=== PATIENT | female | born 1970 | race Caucasian/White ===

== ENCOUNTER 2023-04-21 09:35 | Outpatient (RCR) | payer OTHER, SELFPAY | END 2023-04-21 23:59 | disposition home or self-care (01) | LOC: CRHB 09:35 | PROVIDERS: ATTENDING PHYSICIAN Internal Medicine Cardiovascular Disease; FAMILY PHYSICIAN Physician Assistant | DX: I25.10 Atherosclerotic heart disease of native coronary artery without angina pectoris (principal); Z95.5 Presence of coronary angioplasty implant and graft; I25.2 Old myocardial infarction | CPT/HCPCS: 93797; 93798 ==

== ENCOUNTER 2023-05-07 08:45 | Outpatient (RCR) | payer OTHER, SELFPAY | END 2023-05-07 23:59 | disposition home or self-care (01) | LOC: CRHB 08:45 | PROVIDERS: ATTENDING PHYSICIAN Internal Medicine Cardiovascular Disease; FAMILY PHYSICIAN Physician Assistant | DX: I25.10 Atherosclerotic heart disease of native coronary artery without angina pectoris (principal); Z95.5 Presence of coronary angioplasty implant and graft; I25.2 Old myocardial infarction | CPT/HCPCS: 93797; 93798 ==

== ENCOUNTER 2023-09-08 08:47 | Emergency (ER) | payer OTHER, SELFPAY ==
[2023-09-08 08:48] VITALS: BP 121/82
--- NOTE | 2023-09-08 09:34 | ED.GENMED ---
History of Present Illness
General
Chief Complaint: Extremity Pain (non-traumatic)
Source: patient
Exam Limitations: none
Time Seen by Provider: 09/08/23 09:05
Nursing documentation reviewed up to this point in time: agreed with
Travel History
Have you had any contact with someone who has COVID-19?: No
Do you have any symptoms of coronavirus? Fever > 100 degrees, chills, cough, shortness of breath, sore throat, loss of taste or smell, muscle aches, or headache?: No
History of Present Illness
History of Present Illness:
53-year-old female with past medical history of hypertension previous heart attack currently on Brilinta presenting to the emergency department today with concerns of left dave pain over the past few days. There is some small mount of bruising to
the area as well. Has a chronic foot pain over the past year as well. Denies any chest pain shortness of breath nausea vomiting or blood clots.
Past History
Past History
ED Past Medical History: GERD, HTN, Hypercholesterolemia, [place], Other (Neck pain, HELP syndrome, Anemoa, ) and Other (Help syndrome)
ED Past Surgical History: Cardiac (Stents S 3), Cholecystectomy, ( X 2) and Orthopedic (Left hand surgery, Right Meniscus, Right foot surgery, )
Social History
Tobacco: Non-smoker
Alcohol: Occasional
Drug: None
Personal:
Living: with family
Employment: Employed
Family History
Family History: CAD
Review of Systems
Review of Systems
Allergies reviewed?: Yes
All Other Systems: ROS reviewed and negative except as documented in HPI and ROS
Phy Exam
Physical Exam
Physical Exam:
GENERAL: Alert , in no apparent distress
EYE: pupils equal and reactive
NECK: Supple, no significant adenopathy.
ENT: o/p clr, mmm.
CARDIAC: Regular rate and rhythm .
LUNGS: Clear breath sounds bilaterally, no acute respiratory distress, no wheezes/rales/rhonchi
ABDOMEN: Soft, without focal tenderness, no r/g, no cvat
NEUROLOGICAL: Alert and oriented, no focal neuro deficits
SKIN: Warm and dry, skin intact.
MUSCULOSKELETAL: Very mild swelling to the left dave compared to the right small on bruising to the dave mild tenderness good distal pulses and cap refill normal range of motion and strength of the knee ankle and toes, well perfused.
PSYCH: Normal and appropriate interaction.
Course
Orders/Labs/Results
Orders:
Orders
09/08/23 09:19
Venous Doppler Lwr Ext Left [US Periph Venous LOWER Ext LT] Urgent
Comment:
Reason For Exam: leg pain
Vital Signs
Initial and Last Documented VS:
Initial Vital Signs
Temp Pulse Resp BP Pulse Ox
98.1 F 74 20 121/82 98
09/08/23 08:48 09/08/23 08:48 09/08/23 08:48 09/08/23 08:48 09/08/23 08:48
Last Documented Vital Signs
Temp Pulse Resp BP Pulse Ox
98.1 F 74 20 121/82 98
09/08/23 08:48 09/08/23 08:48 09/08/23 08:48 09/08/23 08:48 09/08/23 08:48
MDM/Problems Addressed
MDM/Problems Addressed:
53-year-old female presenting to the emergency department today with concerns of left-sided dave discomfort. This worsening over the past few days. On arrival here distal neurovascular examination. Small amount of bruising to the dave mild
tenderness very subtle swelling. Considering patient's swelling is atraumatic ultrasound was performed that did not show signs of DVT. No apparent life threats no redness warmth no signs of infection advised for elevation and compression stocking
as well as close outpatient follow-up. Return precautions given.
*Critical Care Note
Total Time (30-74mins, 75-104mins- exclusive of procedures): Not Applicable
ED Attending Note
-
Portions of this chart may have been created with voice recognition software.� Occasional wrong word or��sound alike� substitutions may have occurred due to the inherent limitations of voice recognition software.
Discharge Plan
Departure
Patient Disposition: Home (Routine Discharge)
Date of Disposition: 09/08/23
Time of Disposition: 11:04
Patient with high blood pressure during this ER visit?: No
Condition: Good
Covid-19: Not Applicable
Discharge Problem:
Left leg pain
Instructions: Muscle and Bone Pain (DC)
Prescriptions:
No Action
escitalopram oxalate 10 mg Tablet
10 mg PO DAILY
poaeiczl-ufikwedbbm-nh glycn-C 500-400 mg Capsule
3 cap PO DAILY
glucosamine-chondroitin [Osteo Bi-Flex] 250-200 mg Tablet
2 tab PO DAILY
multivitamin Tablet,Chewable
2 tab DAILY
Hair,Skin and Nails Tablet
2 tab PO DAILY
Brilinta 90 mg Tablet
90 mg PO BID Qty: 60 11RF
aspirin [Children's Aspirin] 81 mg Tablet,Chewable
81 mg PO DAILY Qty: 1 0RF
Rx Instructions:
DO NOT STOP ASPIRIN
lisinopril 5 mg Tablet
5 mg PO DAILY Qty: 90 3RF
atorvastatin 80 mg tablet
80 mg PO QPM Qty: 90 3RF
nitroglycerin [nitroglycerin] 0.4 mg tablet, sublingual
0.4 mg sublingual [id number] PRN (Reason: chest pain) Qty: 25 2RF
Referrals:
Marcy Amor PA-C [Family Provider] -
Activity Restrictions/Additional Instructions:
You came to the emergency department today with concerns of leg pain. Here you had a reassuring ultrasound. Please feel close with the primary care doctor for reassessment. Return to the emergency department for any worsening, new or concerning
symptoms.
Interventions
Interventions:
*Risk Screen - Suicide Last Done: 09/08/23 08:48
*General Assessment Last Done: 09/08/23 08:48
*Neglect/Abuse Screening Last Done: 09/08/23 08:48
ED- Fall Risk Assessment Last Done: 09/08/23 09:06
*ED COVID-19 Vaccine History Last Done: 09/08/23 09:05
ED-Skin Assessment Last Done: 09/08/23 10:38
ED-Peripheral Vascular Assessment Last Done: 09/08/23 10:38
ED-Musculoskeletal Assessment Last Done: 09/08/23 10:38
Discharge Date and Time
Print Language: WELSH
== END 2023-09-08 11:26 | disposition home or self-care (01) ==
LOC: EMR 08:47
PROVIDERS: EMERGENCY PHYSICIAN Emergency Medicine; FAMILY PHYSICIAN Physician Assistant
DX: M79.662 Pain in left lower leg (principal); R22.42 Localized swelling, mass and lump, left lower limb; I10 Essential (primary) hypertension; K21.9 Gastro-esophageal reflux disease without esophagitis; E78.00 Pure hypercholesterolemia, unspecified; I25.2 Old myocardial infarction; G89.29 Other chronic pain; M79.605 Pain in left leg; Z79.02 Long term (current) use of antithrombotics/antiplatelets; Z82.49 Family history of ischemic heart disease and other diseases of the circulatory system; Z90.49 Acquired absence of other specified parts of digestive tract; Z95.5 Presence of coronary angioplasty implant and graft
CPT/HCPCS: 99284; 93971

== ENCOUNTER → 2023-12-23 14:50 | Outpatient (REF) | payer OTHER, SELFPAY | LOC: RCS 14:50 | PROVIDERS: ATTENDING PHYSICIAN Internal Medicine Cardiovascular Disease; FAMILY PHYSICIAN Physician Assistant | DX: R07.89 Other chest pain (principal); I21.09 ST elevation (STEMI) myocardial infarction involving other coronary artery of anterior wall; I25.10 Atherosclerotic heart disease of native coronary artery without angina pectoris; E78.5 Hyperlipidemia, unspecified; I10 Essential (primary) hypertension; Z95.5 Presence of coronary angioplasty implant and graft | CPT/HCPCS: 93306 ==

== ENCOUNTER → 2023-12-25 07:19 | Outpatient (REF) | payer OTHER, SELFPAY | LOC: DHCBC/DCA 07:19 | PROVIDERS: ATTENDING PHYSICIAN Internal Medicine Cardiovascular Disease; FAMILY PHYSICIAN Physician Assistant | DX: R07.89 Other chest pain (principal) | CPT/HCPCS: 78452; 93017; A9500; J2785 ==

== ENCOUNTER 2023-12-30 10:01 | Day surgery (SDC) | payer OTHER, SELFPAY ==
[2023-12-30] VITALS (7 sets, daily range): BP systolic 111–125; BP diastolic 67–90; BMI 31.8
[2023-12-30] MEDS: NSS 229 ML IV (11:32)
[2023-12-30] MEDS: NSS 1000 IV (14:35)
--- NOTE | 2023-12-30 18:27 | ITS.CL.CATH ---
[employer] - Catheterization
Cardiac Catheterization
Procedure Report:
CARDIAC CATHETERIZATION REPORT
Date of Procedure: 12/30/2023
Referring: Jovanni Sarkar D.O.
INDICATION: Known coronary artery disease, chest pressure, abnormal stress test.
PROCEDURE:
1. Left heart catheterization.
2. Coronary angiography.
ACCESS:
6 [place] right femoral artery using a modified Seldinger technique with a micropuncture kit under ultrasound guidance.
CATHETERS:
1. 5 [place] JR4.
2. 5 [place] JL 3.5.
HEMODYNAMIC DATA
Weight (kg): 76.2
AO (s/d/x, mmHg): 120/67/92
LV (s/x mmHg): 125/14
LEFT VENTRICULOGRAPHY: Not performed.
CORONARY ANGIOGRAPHY
Dominance: Right.
Left Main: Normal size, trifurcating vessel. There is no coronary artery disease.
LAD: Normal size vessel giving rise to 1 large diagonal. There is significant overlap of the proximal LAD and proximal diagonal. A patent stent is present in the proximal diagonal with no evidence of in-stent restenosis.
Ramus: Medium size vessel supplying the majority of the lateral wall. There is moderate to severe tortuosity in the proximal third of the vessel. There is no coronary artery disease.
Circumflex: Small size, nondominant vessel giving rise to a single obtuse marginal. There is no coronary artery disease.
RCA: Normal size, dominant vessel. Patent stents are present in the proximal and mid vessel. There is a 20% in-stent restenosis lesion in the distal aspect of the mid RCA stent.
INTERVENTION(S)
None.
Closure Device: 6 [place] Angio-Seal.
Radiation (mGy): 362.25
DAP (cm2.Gy): 25.0502
Fluoroscopy time (minutes): 1.7
Sedation time (minutes): 27
CONCLUSIONS
1. Right dominant circulation with a patent stent in the proximal diagonal as well as patent stents in the proximal and mid RCA with a 20% in-stent restenosis lesion in the distal aspect of the mid RCA stent.
2. Significant angiographic overlap of the proximal LAD and proximal D1, ultimately overcome by imaging the vessels in an extreme angle (PATRICIA 48, CAU 31).
3. Top normal filling pressures (LVEDP = 14 mmHg at 76.2 kg).
4. False positive stress test.
RECOMMENDATIONS:
1. Expectant management after cardiac catheterization via right common femoral approach.
2. Limited weight bearing on the right wrist for one week.
3. Continue aggressive secondary prevention with high-dose, high potency statin.
4. Maintain dual antiplatelet therapy for 1 year post PCI.
5. Stable for outpatient follow-up.
Copy to: Jovanni Sarkar D.O., Marcy Amor, CHERISE
Jovanni Sarkar, DO, FACC, FACP
== END 2023-12-30 17:15 | disposition home or self-care (01) ==
LOC: CATH 10:01
PROVIDERS: ATTENDING PHYSICIAN Internal Medicine Cardiovascular Disease; FAMILY PHYSICIAN Physician Assistant
DX: I25.10 Atherosclerotic heart disease of native coronary artery without angina pectoris (principal); R07.89 Other chest pain; R94.39 Abnormal result of other cardiovascular function study; I10 Essential (primary) hypertension; E78.5 Hyperlipidemia, unspecified; Z95.5 Presence of coronary angioplasty implant and graft; T82.855A Stenosis of coronary artery stent, initial encounter; I25.2 Old myocardial infarction; Z79.82 Long term (current) use of aspirin; Z79.02 Long term (current) use of antithrombotics/antiplatelets; K21.9 Gastro-esophageal reflux disease without esophagitis
CPT/HCPCS: 93458; C1760; C1894; Q9967

== ENCOUNTER 2024-01-13 19:08 | Emergency (ER) | payer OTHER, SELFPAY ==
[2024-01-13 19:10] VITALS: BP 118/63
--- NOTE | 2024-01-13 20:19 | ED.GENMED ---
History of Present Illness
General
Chief Complaint: Skin Surface Trauma
Source: patient
Exam Limitations: none
Time Seen by Provider: 01/13/24 19:32
Nursing documentation reviewed up to this point in time: agreed with
History of Present Illness
History of Present Illness:
53 y/o F with h/o CAD/IL
on brillinta
has been having a lot of stress at work and home
came home tonight from work and had a few oz of vodka, normally doesn't drink alcohol
then
was walkingup the steps and tripped and hit her head on the step
no LOC
deniesneck pain, nausea, vomiting, confusion
last tetanus 5 years ago
no other injruies
she is ambulatory
her son drove her here
Past History
Past History
ED Past Medical History: GERD, HTN, Hypercholesterolemia, [place], Other (Neck pain, HELP syndrome, Anemoa, ) and Other (Help syndrome)
ED Past Surgical History: Cardiac (Stents S 3), Cholecystectomy, ( X 2) and Orthopedic (Left hand surgery, Right Meniscus, Right foot surgery, )
Social History
Tobacco: Non-smoker
Alcohol: Occasional
Drug: None
Personal:
Living: with family
Employment: Employed
Family History
Family History: CAD
Review of Systems
Review of Systems
Allergies reviewed?: Yes
All Other Systems: Not applicable
Phy Exam
Physical Exam
Physical Exam:
GENERAL: Alert , in no apparent distress, mildly intoxicated,
HEAD: large forehead laceration L forehead approx 6 cm
no other signs truama
NECK: no midline tenderness, active ROM intact, no paraspinal muscle tenderness;
EYE: pupils equal and reactive, EOMs intact.
ENT: o/p clr, mmm. no hemotympanum
CARDIAC: Regular rate and rhythm, no edema
LUNGS: Clear breath sounds bilaterally, no acute respiratory distress, no wheezes/rales/rhonchi
ABDOMEN: Soft, without focal tenderness, no r/g, no cvat
NEUROLOGICAL: Alert and oriented, no focal neuro deficits, CN intact, 5/5 strength, sensation intact
SKIN: Warm and dry,
MUSCULOSKELETAL: No edema, well perfused.
PSYCH: Normal and appropriate interaction.
Course
Orders/Labs/Results
Orders:
Orders
01/13/24 19:15
CT Head W/o Iv Contrast Urgent
Comment:
Reason For Exam: Trauma; takes brilinta and asa.
Vital Signs
Initial and Last Documented VS:
Initial Vital Signs
Temp Pulse Resp BP Pulse Ox
97.8 F 72 16 118/63 98
01/13/24 19:10 01/13/24 19:10 01/13/24 19:10 01/13/24 19:10 01/13/24 19:10
Last Documented Vital Signs
Temp Pulse Resp BP Pulse Ox
98.1 F 77 18 107/66 97
01/13/24 21:05 01/13/24 21:05 01/13/24 21:05 01/13/24 21:05 01/13/24 21:05
Procedures
Laceration Closure
Left Lateral Forehead:
Status of Wound: clean
Size of Wound in cm: 6
Description of Wound Edges: sharp and flap-well vascularized
Preparation: cleaned with saline
Anesthesia: 1% Lidocaine with epi
Revision/Debridement: routine- no revision
Wound exploration: explored to base- no FB
Type of Closure: layered closure
Skin Closure Material: 6-0 nylon and 5-0 vicryl
Number of sutures: 7
MDM/Problems Addressed
Differential Diagnosis Includes:
head injury, laceration, concussion,
MDM/Problems Addressed:
53-year-old female with no reported daily alcohol use problem but with history of IL in the past presents for head laceration after tripping while walking up the steps. She happened to come home tonight from work and have several ounces of vodka
which she does not normally have. Patient is overwhelmed from stress at home and work. She was walking up the steps and tripped and hit her head on the step. She had no loss of consciousness. She has not had any vomiting or numbness or tingling.
She has no neck pain. On exam though the patient is minimally intoxicated she is clinically sober able to talk and walk steadily. She has a large laceration to her left forehead. She is on Brilinta. Her head CT was negative. Her neuroexam is
intact. She has no midline cervical tenderness
Her son is driving her home. Her wound was well-approximated with sutures and she was discharged home
*Critical Care Note
Total Time (30-74mins, 75-104mins- exclusive of procedures): Not Applicable
ED Attending Note
-
Portions of this chart may have been created with voice recognition software.� Occasional wrong word or��sound alike� substitutions may have occurred due to the inherent limitations of voice recognition software.
Discharge Plan
Departure
Patient Disposition: Home (Routine Discharge)
Date of Disposition: 01/13/24
Time of Disposition: 20:53
Patient with high blood pressure during this ER visit?: No
Condition: Fair
Covid-19: Not Applicable
Discharge Problem:
Fall, Alcohol use, Laceration of head, Minor head injury
Instructions: Head injury in adults, Laceration Repair With Stitches (DC)
Prescriptions:
No Action
escitalopram oxalate 10 mg Tablet
10 mg PO DAILY
vpdjrpee-ymsprjbbbv-ff glycn-C 500-400 mg Capsule
3 cap PO DAILY
glucosamine-chondroitin [Osteo Bi-Flex] 250-200 mg Tablet
2 tab PO DAILY
multivitamin Tablet,Chewable
2 tab PO DAILY
Hair,Skin and Nails Tablet
2 tab PO DAILY
Brilinta 90 mg Tablet
90 mg PO BID Qty: 60 11RF
aspirin [Children's Aspirin] 81 mg Tablet,Chewable
81 mg PO DAILY Qty: 1 0RF
Rx Instructions:
DO NOT STOP ASPIRIN
lisinopril 5 mg Tablet
5 mg PO DAILY Qty: 90 3RF
atorvastatin 80 mg tablet
80 mg PO QPM Qty: 90 3RF
nitroglycerin 0.4 mg tablet, sublingual
0.4 mg sublingual [id number] PRN (Reason: chest pain) Qty: 25 2RF
metoprolol succinate 25 mg Tablet Extended Release 24 Hr
25 mg PO DAILY
celecoxib [Celebrex] 100 mg Capsule
100 mg PO DAILY
Referrals:
Marcy Amor PA-C [Family Provider] - Follow up in 5-7 days
Stand Alone Forms: Return to Work
Activity Restrictions/Additional Instructions:
KEEP THE WOUND CLEAN AND DRY FOR 24 HOURS
AFTER THAT YOU CAN GET IT WET IN THE BATH/SHOWER ONCE A DAY AND MAKE SURE IT IS CLEAN AND THERE IS NO DRIED BLOOD ON THE STITCHES
APPLY NEOSPORIN AND A BANDAID
THE STITCHES NEED TO BE REMOVED IN ABOUT 75-7 DAYS, SEE YOUR DOCTOR FOR THIS.
THE LAST DAY BEFORE STITCHES OUT, NO OINTMENT, LEAVE OPEN TO AIR
WATCH FOR SIGNS OF INFECTION AND RETURN NEEDED FOR PAIN, SWELLING, REDNESS, DRAINAGE, BLEEDING.
MOTRIN NEEDED FOR PAIN.
YOU may have a mild concussion
your head ct was negative
for this we recommend 24-48 hours of brain rest to help your brain heal and your headache improve.
after 24-48 hours, you can return to work
if you are getting headaches, you may need to be sent home. if you are still having headaches all week, you need to see a specialist
return to the er for: worsening pain, vomiting, confusion, weakness, numbness/tingling in arms or legs or any concerns.
Interventions
Interventions:
*Risk Screen - Suicide Last Done: 01/13/24 21:06
*General Assessment Last Done: 01/13/24 21:06
*Neglect/Abuse Screening Last Done: 01/13/24 21:06
ED- Fall Risk Assessment Last Done: 01/13/24 21:06
*ED COVID-19 Vaccine History Last Done: 01/13/24 21:06
*Nursing Disposition Last Done: 01/13/24 21:06
ED-Skin Assessment Last Done: 01/13/24 21:05
Discharge Date and Time
Discharge Date/Time: 01/13/24 21:07
Print Language: CUBAN
[2024-01-13 21:05] VITALS: BP 107/66
== END 2024-01-13 21:07 | disposition home or self-care (01) ==
LOC: EMR 19:08
PROVIDERS: EMERGENCY PHYSICIAN Emergency Medicine; FAMILY PHYSICIAN Physician Assistant
DX: S01.81XA Laceration without foreign body of other part of head, initial encounter (principal); W10.9XXA Fall (on) (from) unspecified stairs and steps, initial encounter; E78.00 Pure hypercholesterolemia, unspecified; I10 Essential (primary) hypertension; I25.10 Atherosclerotic heart disease of native coronary artery without angina pectoris; I25.2 Old myocardial infarction; Z79.02 Long term (current) use of antithrombotics/antiplatelets; Z79.82 Long term (current) use of aspirin; Z95.5 Presence of coronary angioplasty implant and graft; Z90.49 Acquired absence of other specified parts of digestive tract
CPT/HCPCS: 12053; 99284; 70450

== ENCOUNTER 2024-03-08 10:33 | Emergency (ER) | payer OTHER, SELFPAY ==
[2024-03-08 10:36] VITALS: BP 154/98
--- NOTE | 2024-03-08 11:58 | ED.GENMED ---
History of Present Illness
<Pilar Hernandez PA-C - Last Filed: 03/08/24 13:57>
General
Chief Complaint: Numbness
Source: patient
Exam Limitations: none
Time Seen by Provider: 03/08/24 11:51
Nursing documentation reviewed up to this point in time: agreed with
History of Present Illness
History of Present Illness:
53-year-old female with a past medical history of hypertension, VA, coronary artery disease presents emergency department today with concerns of left-sided jaw pain, and intermittent bilateral upper extremity paresthesias. This has been going on
for the past 3 days. Patient states that she has had the jaw pain for a while but has never had the numbness and tingling in her arms before. She feels like the numbness and tingling is more prominent on the left side. Patient is concerned
because she had a heart attack last March and states that she called her imaging specialist in regards to the of the symptoms and was told to his the emergency department. She also concerned and that might be a orthopedic issue as patient has had
chronic neck pain for multiple years and sometimes it radiates down into her arms. She also notes some mild left shoulder discomfort. She denies back pain. She denies chest pain or shortness of breath. She denies any syncopal episodes. She
states that when she had her heart attack, the symptoms she was having at that time felt much different than how she feels now. Patient has not had any abdominal pain, diarrhea, nausea or vomiting, syncopal episodes.
Past History
<Pilar Hernandez PA-C - Last Filed: 03/08/24 13:57>
Past History
ED Past Medical History: GERD, HTN, Hypercholesterolemia, VA, Other (Neck pain, HELP syndrome, Anemoa, ) and Other (Help syndrome)
ED Past Surgical History: Cardiac (Stents S 3), Cholecystectomy, ( X 2) and Orthopedic (Left hand surgery, Right Meniscus, Right foot surgery, )
Social History
Tobacco: Non-smoker
Alcohol: Occasional
Drug: None
Personal:
Living: with family
Employment: Employed
Family History
Family History: CAD
Review of Systems
<Pilar Hernandez PA-C - Last Filed: 03/08/24 13:57>
Review of Systems
All Other Systems: ROS reviewed and negative except as documented in HPI and ROS
Phy Exam
<Pilar Hernandez PA-C - Last Filed: 03/08/24 13:57>
Physical Exam
Physical Exam:
General: Patient is well appearing and in no acute distress; non-toxic
Skin: Warm and dry, no rashes or lesions
Head: Normocephalic, atraumatic
Eyes: Sclera non-icteric. EOMs intact. PERRLA.
Cardiac: Regular rate and rhythm, no murmurs, no tenderness palpation of the external chest
Peripheral Vascular: 2+ dorsalis pedis and posterior tibial pulses bilaterally
Pulm: Normal respiratory effort, no wheezes, rales, or rhonchi
Abdomen: No abdominal tenderness to palpation, no pulsatile abdominal mass
Musculoskeletal: No tenderness to palpation of the left shoulder, full ROM of b/l upper extremities, 5/5 strength
Neuro: CN II-XII intact, no focal neurologic deficits. Sensation intact and equal in the bilateral upper extremities.
Psychiatric: Anxious affect.
Course
<Pilar Hernandez PA-C - Last Filed: 03/08/24 13:57>
Orders/Labs/Results
Orders:
Orders
03/08/24 10:38
EKG [Electrocardiogram (*1)] Urgent
Reason for Study: Fatigue / Weakness
03/08/24 10:39
EKG- Treatment ONCE
03/08/24 12:22
Complete Blood Count/With Diff Urgent
Comprehensive Metabolic Panel Urgent
Troponin I Urgent
Abnormal Lab Results
03/08/24
12:22
Eosinophils % 6.1 H %
(0-6)
03/08/24 12:22
03/08/24 12:22
Vital Signs
Initial and Last Documented VS:
Initial Vital Signs
Temp Pulse Resp BP Pulse Ox
97.9 F 76 16 154/98 98
03/08/24 10:36 03/08/24 10:36 03/08/24 10:36 03/08/24 10:36 03/08/24 10:36
Last Documented Vital Signs
Temp Pulse Resp BP Pulse Ox
97.9 F 69 14 138/110 100
03/08/24 10:36 03/08/24 12:15 03/08/24 12:15 03/08/24 12:09 03/08/24 12:15
<Rico Issa, DO - Last Filed: 03/08/24 12:39>
Orders/Labs/Results
Orders:
Orders
03/08/24 10:38
EKG [Electrocardiogram (*1)] Urgent
Reason for Study: Fatigue / Weakness
03/08/24 10:39
EKG- Treatment ONCE
03/08/24 12:22
Complete Blood Count/With Diff Urgent
Comprehensive Metabolic Panel Urgent
Troponin I Urgent
Abnormal Lab Results
03/08/24
12:22
Eosinophils % 6.1 H %
(0-6)
03/08/24 12:22
03/08/24 12:22
Vital Signs
Initial and Last Documented VS:
Initial Vital Signs
Temp Pulse Resp BP Pulse Ox
97.9 F 76 16 154/98 98
03/08/24 10:36 03/08/24 10:36 03/08/24 10:36 03/08/24 10:36 03/08/24 10:36
Last Documented Vital Signs
Temp Pulse Resp BP Pulse Ox
97.9 F 69 14 138/110 100
03/08/24 10:36 03/08/24 12:15 03/08/24 12:15 03/08/24 12:09 03/08/24 12:15
evan;Pilar Hernandez PA-C - Last Filed: 03/08/24 13:57>
MDM/Problems Addressed
Differential Diagnosis Includes:
see below
MDM/Problems Addressed:
NUMBER AND COMPLEXITY OF PROBLEMS ADDRESSED AT THE ENCOUNTER
� Chronic conditions affecting care: CAD, HTN, HLP
� Acute Exacerbation and/or Progression of Chronic Illness:
� Differential Diagnosis includes: ACS, cervical radiculopathy, hyperventilation/anxiety, TMJ syndrome
AMOUNT AND/OR COMPLEXITY OF DATA TO BE REVIEWED AND ANALYZED
� I performed an independent evaluation of and my interpretation is:
EKG: Normal sinus rhythm with no ischemic changes, no T wave inversion, rate 60
Laboratory Studies: CBC and CMP unremarkable troponin undetectable
Other:
� Review of other/old records: Reviewed [facility] [employer], reviewed ER physician documentation from 01/12 since , reviewed patient drinking and hit her head
� Clinical information was obtained by an independent historian: n/a
� Prescriptions/Medications Considered but not given: none
� Further testing considered but not performed: considered repeat troponin however patient has been having symptoms for multiple days
RISK OF COMPLICATIONS AND/OR MORBIDITY OR MORTALITY OF PATIENT MANAGEMENT
� Social determinants of health affecting care: none
� Discussion with other providers: ER attending
� Escalation of care including admission/observation vs risk of discharge considered:
53-year-old female presents emergency department today with left jaw pain and left arm paresthesias for the past 3 days. Patient reports that she has an appointment with an orthopedist and neurologist to address the symptoms on March 15.
Patient was concerned that it could be a cardiac issue, she has not had any chest pain or shortness of breath. Her EKG here in the ER is normal sinus rhythm with no concerning ischemic changes. Her troponin is undetectable. Doubt cardiac cause of
her symptoms, suspect possible cervical radiculopathy. Advised patient to follow-up with her imaging specialist as needed. Patient stable for discharge
<Pilar Hernandez PA-C - Last Filed: 03/08/24 13:57>
*Critical Care Note
Total Time (30-74mins, 75-104mins- exclusive of procedures): Not Applicable
ED Attending Note
<Pilar Hernandez PA-C - Last Filed: 03/08/24 13:57>
-
Portions of this chart may have been created with voice recognition software.� Occasional wrong word or��sound alike� substitutions may have occurred due to the inherent limitations of voice recognition software.
<Rico Issa DO - Last Filed: 03/08/24 12:39>
ED Attending Note
Patient seen and examined by attending physician: Yes
I performed the substantive portion of visit, reviewed & personally made and approve the management plan that is documented in note by myself or FREDI.: Yes
ED Attending Note:
I evaluated the patient bedside. The patient has been having paresthesias and discomfort originally from the left trapezius region 'for years' with some worsening more recently. She has some paresthesias in the left upper extremity but also has
some symptoms in the right upper extremity intermittently. Normal neurologic examination. She states that she will be seeing orthopedics at [place] and is hoping to see neurology at [place] as well. No acute abnormal neurologic finding on
exam. Given her cardiac history with some vague jaw discomfort, EKG was obtained which was normal and also check troponin.
Discharge Plan
Departure
Patient Disposition: Home (Routine Discharge)
Date of Disposition: 03/08/24
Time of Disposition: 13:42
Patient with high blood pressure during this ER visit?: Yes
Condition: Good
Discharge Problem:
Jaw pain, Arm paresthesia, left
Instructions: Paresthesia (DC), BLOOD PRESSURE
Prescriptions:
No Action
escitalopram oxalate 10 mg Tablet
10 mg PO DAILY
ybdkhght-[id number]-kj glycn-C 500-400 mg Capsule
3 cap PO DAILY
glucosamine-chondroitin [Osteo Bi-Flex] 250-200 mg Tablet
2 tab PO DAILY
multivitamin Tablet,Chewable
2 tab PO DAILY
Hair,Skin and Nails Tablet
2 tab PO DAILY
Brilinta 90 mg Tablet
90 mg PO BID Qty: 60 11RF
aspirin [Children's Aspirin] 81 mg Tablet,Chewable
81 mg PO DAILY Qty: 1 0RF
Rx Instructions:
DO NOT STOP ASPIRIN
lisinopril 5 mg Tablet
5 mg PO DAILY Qty: 90 3RF
atorvastatin 80 mg tablet
80 mg PO QPM Qty: 90 3RF
nitroglycerin 0.4 mg tablet, sublingual
0.4 mg sublingual [id number] PRN (Reason: chest pain) Qty: 25 2RF
metoprolol succinate 25 mg Tablet Extended Release 24 Hr
25 mg PO DAILY
celecoxib [Celebrex] 100 mg Capsule
100 mg PO DAILY
Referrals:
Jovanni Sarkar, [Active] -
Marcy Amor PA-C [Family Provider] -
Activity Restrictions/Additional Instructions:
Please follow up with your imaging specialist.
PLEASE RETURN TO THE EMERGENCY DEPARTMENT SHOULD YOU EXPERIENCE CHEST PAIN, SHORTNESS OF BREATH, ACUTE WORSENING OF YOUR SYMPTOMS, INTRACTABLE NAUSEA AND VOMITING, WEAKNESS ON ONE SIDE OF THE BODY VS THE OTHER, CONFUSION, LIGHTHEADEDNESS, DIZZINESS,
OR ANY OTHER SIGNS OR SYMPTOMS WORRISOME TO YOU.
Interventions
Interventions:
*Risk Screen - Suicide Last Done: 03/08/24 10:36
*General Assessment Last Done: 03/08/24 10:36
*Neglect/Abuse Screening Last Done: 03/08/24 10:36
ED- Fall Risk Assessment Last Done: 03/08/24 12:07
*ED COVID-19 Vaccine History Last Done: 03/08/24 12:07
ED- Neurological Assessment Last Done: 03/08/24 12:07
Discharge Date and Time
Print Language: SLOVENIAN
[2024-03-08 12:09] VITALS: BP 138/110
[2024-03-08 12:33] LABS: % Basophils 0.5 % (0-2); % Eosinophils 6.1 % (0-6); % Immature Granulocytes 0.2 % (0-0.5); % Lymphocytes 31.2 % (20.5-51.1); % Monocytes 7.6 % (1.7-9.3); % Neutrophils 54.4 % (42.2-75.2); Absolute Eosinophils 0.5 10^3/uL (0-0.7); Absolute Lymphocytes 2.6 10^3/uL (1.2-3.4); Absolute Monocytes 0.6 10^3/uL (0.1-0.6); Absolute Neutrophils 4.4 10^3/uL (1.4-6.5); Hematocrit 39.9 % (37.0-47.0); Hemoglobin 13.4 g/dL (12.0-16.0); Mean Corp Hgb Conc. 33.6 g/dL (33.0-37.0); Mean Corpuscular Hgb 29.5 pg (27.0-31.0); Mean Corpuscular Volume 87.9 fL (81.0-99.0); Mean Platelet Volume 10.1 fL (7.4-10.4); Nucleated Red Blood Cells % 0 %; Platelet Count 239 10^3/uL (130-400); Red Blood Cell Count 4.54 10^6/uL (4.20-5.40); Red Cell Dist. Width 12.2 % (11.5-14.5); White Blood Cell Count 8.2 10^3/uL (4.8-10.8)
[2024-03-08 12:57] LABS: ALT (SGPT) 27 U/L (0-35); AST (SGOT) 30 U/L (14-36); Albumin 4.4 g/dl (3.5-5.0); Alkaline Phosphatase 69 U/L (38-126); Blood Urea Nitrogen 13 mg/dl (7-17); Calcium 9.4 mg/dl (8.4-10.2); Carbon Dioxide 23 mmol/L (22-30); Chloride 104 mmol/L (98-107); Glucose 87 mg/dl (70-99); Potassium 4.2 mmol/L (3.5-5.1); Sodium 139 mmol/L (135-145); Total Bilirubin 0.5 mg/dl (0.2-1.3); eGFR > 60.00
[2024-03-08 13:22] LABS: Troponin I < 0.012 ng/ml
== END 2024-03-08 14:07 | disposition home or self-care (01) ==
LOC: EMR 10:33
PROVIDERS: Physician Assistant; EMERGENCY PHYSICIAN Emergency Medicine; FAMILY PHYSICIAN Physician Assistant
DX: R68.84 Jaw pain (principal); R20.2 Paresthesia of skin; I10 Essential (primary) hypertension; I25.10 Atherosclerotic heart disease of native coronary artery without angina pectoris; E78.00 Pure hypercholesterolemia, unspecified; I25.2 Old myocardial infarction; K21.9 Gastro-esophageal reflux disease without esophagitis; Z95.5 Presence of coronary angioplasty implant and graft; Z90.49 Acquired absence of other specified parts of digestive tract
CPT/HCPCS: 99284; 80053; 84484; 85025; 93005